=== PATIENT | female | born 1975 | race Caucasian/White ===

== ENCOUNTER 2022-04-19 07:56 | Inpatient (IN) | payer MEDICAID ==
[~2022-04-19] VITALS: Ht 155.5 cm; Wt 61.2 kg
[2022-04-19] MEDS ORDERED: METHYLERGONOVINE MALEATE 0.2 MG/ML IM PRN ×3 (10:15→16:00)
[2022-04-19] MEDS ORDERED: OXYTOCIN 30 UNITS/500ML NS PMX 500 ML IV SCH ×2 (10:15→16:00)
[2022-04-19] MEDS ORDERED: LIDOCAINE HCL 1% 20ML VIAL (Pyxis) INJ INFIL SCH (10:15)
[2022-04-19 10:46] LABS: BASOPHILS % 0.5 % (0.0-2.0); EOSINOPHILS % 0.4 % (0.0-5.0); HEMATOCRIT. 37.4 % (36.0-48.0); HEMOGLOBIN. 12.8 g/dL (12.0-16.0); LYMPHOCYTES % 9.9 % (20.0-50.0); MEAN CORPUSCULAR HEMOGLOBIN 30.3 pg (28.0-32.0); MEAN CORPUSCULAR VOLUME 88.5 fL (81.0-99.0); MEAN PLATELET VOLUME 9.9 fl (7.4-10.4); MONOCYTES % 2.9 % (2.0-8.0); NEUTROPHILS % 86.3 % (40.0-76.0); PLATELET 220 x1000/uL (130-400); RED BLOOD CELL COUNT 4.23 mill/uL (4.2-5.4); RED CELL DISTRIBUTION WIDTH 14.2 % (11.6-14.6)
[2022-04-19 10:49] LABS: CLARITY URINE CLEAR (CLEAR); COLOR URINE YELLOW (YELLOW); KETONES URINE NEGATIVE (NEGATIVE); LEUKOCYTE ESTERASE URINE NEGATIVE (NEGATIVE); NITRITE URINE NEGATIVE (NEGATIVE); OCCULT BLOOD URINE NEGATIVE (NEGATIVE); PH URINE 5.5 (4.5-8.0); PROTEIN URINE 1+ (NEGATIVE); SPECIFIC GRAVITY URINE 1.021 (1.005-1.030); UROBILINOGEN URINE 0.2 E.U./dL (0.2-1.0)
[2022-04-19 11:13] LABS: PARTIAL THROMBOPLASTIN TIME 24.5 sec (23.4-31.0); PROTHROMBIN TIME 10.3 sec (9.6-11.0)
[2022-04-19 11:24] LABS: *AMPHETAMINES SCREEN URINE NEGATIVE (NEGATIVE); *BARBITURATES SCREEN URINE NEGATIVE (NEGATIVE); *BENZODIAZEPINES SCREEN URINE NEGATIVE (NEGATIVE); *COCAINE SCREEN URINE NEGATIVE (NEGATIVE); CANNABINOID URINE SCREEN NEGATIVE (NEGATIVE); METHADONE URINE SCREEN NEGATIVE (NEGATIVE); OPIATES URINE SCREEN NEGATIVE (NEGATIVE); PHENCYCLIDINE URINE SCREEN NEGATIVE (NEGATIVE)
[2022-04-19] MEDS ORDERED: BUTORPHANOL TARTRATE 2 MG/ML VIAL IV PRN (11:30)
[2022-04-19 12:56] LABS: HEPATITIS B SURFACE ANTIGEN NEGATIVE
[2022-04-19] MEDS ORDERED: IBUPROFEN 400MG TABLET PO PRN (16:00)
[2022-04-19] MEDS ORDERED: GLYCERIN/WITCH HAZEL LEAF MEDICATED PAD TOP PRN (16:00)
[2022-04-19] MEDS ORDERED: OXYCODONE HCL/ACETAMINOPHEN 5/325MG TABLET PO PRN (16:00)
[2022-04-19] MEDS ORDERED: DIPHENHYDRAMINE 25MG CAPSULE PO PRN (16:00)
[2022-04-19] MEDS ORDERED: HEMORRHOIDAL SUPP PR PRN (16:00)
[2022-04-19] MEDS ORDERED: LANOLIN OINT 7GM TUBE TOP PRN (16:00)
[2022-04-19] MEDS ORDERED: RHO(D) IMMUNE GLOBULIN 300 MCG/SYR IM PRN (16:00)
[2022-04-19] MEDS ORDERED: BENZOCAINE/LANOLIN/ALOE VERA SPRAY TOP PRN (16:00)
[2022-04-19] MEDS: IBUPROFEN 800MG TABLET PO PRN (17:37)
[2022-04-19 17:45] VITALS: BP 119/78
[2022-04-19 20:00] VITALS: BP 115/70
[2022-04-19 21:30] LABS: HEMATOCRIT. 32.8 % (36.0-48.0); HEMOGLOBIN. 11.1 g/dL (12.0-16.0); MEAN CORPUSCULAR HEMOGLOBIN 30.3 pg (28.0-32.0); MEAN CORPUSCULAR VOLUME 89.4 fL (81.0-99.0); MEAN PLATELET VOLUME 9.7 fl (7.4-10.4); PLATELET 201 x1000/uL (130-400); RED BLOOD CELL COUNT 3.67 mill/uL (4.2-5.4); RED CELL DISTRIBUTION WIDTH 13.8 % (11.6-14.6)
[2022-04-19] MEDS: MAGNESIUM/ALUMINUM HYDROXIDE/SIMETHICONE 30ML UDC PO SCH (21:58)
[2022-04-19 22:39] LABS: PLATELET ESTIMATE NORMAL
[2022-04-20 04:00] VITALS: BP 110/58
[2022-04-20 08:15] VITALS: BP 115/74
[2022-04-20] MEDS: MAGNESIUM/ALUMINUM HYDROXIDE/SIMETHICONE 30ML UDC PO SCH ×4 (08:24→20:59)
[2022-04-20] MEDS: PRENATAL VIT/FE FUMARATE/FA TABLET PO SCH (08:24)
[2022-04-20] MEDS: FERROUS SULFATE 325MG TABLET PO SCH ×3 (08:24→17:50)
[2022-04-20 16:00] VITALS: BP 108/72
[2022-04-20 20:00] VITALS: BP 110/62
[2022-04-21] MEDS: IBUPROFEN 800MG TABLET PO PRN (03:25)
[2022-04-21 03:30] VITALS: BP 122/70
[2022-04-21] MEDS ORDERED: IBUP-2030 PO (04:42)
[2022-04-21 06:51] LABS: BASOPHILS % 0.4 % (0.0-2.0); EOSINOPHILS % 1.8 % (0.0-5.0); HEMATOCRIT. 31.9 % (36.0-48.0); HEMOGLOBIN. 10.8 g/dL (12.0-16.0); LYMPHOCYTES % 15.2 % (20.0-50.0); MEAN CORPUSCULAR HEMOGLOBIN 30.3 pg (28.0-32.0); MEAN CORPUSCULAR VOLUME 89.6 fL (81.0-99.0); MEAN PLATELET VOLUME 9.3 fl (7.4-10.4); MONOCYTES % 4.8 % (2.0-8.0); NEUTROPHILS % 77.8 % (40.0-76.0); PLATELET 217 x1000/uL (130-400); RED BLOOD CELL COUNT 3.56 mill/uL (4.2-5.4); RED CELL DISTRIBUTION WIDTH 14.6 % (11.6-14.6)
[2022-04-21 08:20] VITALS: BP 108/67
[2022-04-21] MEDS: FERROUS SULFATE 325MG TABLET PO SCH (09:01)
[2022-04-21] MEDS: PRENATAL VIT/FE FUMARATE/FA TABLET PO SCH (09:01)
[2022-04-21] MEDS: MAGNESIUM/ALUMINUM HYDROXIDE/SIMETHICONE 30ML UDC PO SCH (09:01)
== END 2022-04-21 12:40 | disposition home or self-care (01) | DRG 542 ==
LOC: 8 EST LDRP 07:56 → OBSVTOIN 07:56 → 8 EST LDRP 08:47 → 8EST 17:26
PROVIDERS: ADMIT Obstetrics & Gynecology; ATTEND Obstetrics & Gynecology
PROC: 10D07Z6 Extraction of Products of Conception, Vacuum, Via Natural or Artificial Opening (ICD-10-PCS; principal; 2022-04-19)
PROC: 0DQR0ZZ Repair Anal Sphincter, Open Approach (ICD-10-PCS; 2022-04-19)
DX: O76 Abnormality in fetal heart rate and rhythm complicating labor and delivery (principal); Z37.0 Single live birth; O70.20 Third degree perineal laceration during delivery, unspecified; Z3A.37 37 weeks gestation of pregnancy; Z20.822 Contact with and (suspected) exposure to COVID-19
CPT/HCPCS: 36415; 80305; 81003; 85025; 86592; 86703; 86762; 86850; 86900; 87340; 87426; 99281; J0595; J2590